=== PATIENT | female | born 1930 | race Caucasian/White ===

== ENCOUNTER 2016-11-09 14:16 | Emergency (ER) | payer MEDICARE, MEDICAID ==
[~2016-11-09] VITALS: Ht 165.1 cm; Wt 68.0 kg
[2016-11-09 14:45] VITALS: BP 146/71
== END 2016-11-09 16:05 | disposition home or self-care (01) ==
LOC: ER 14:16
DX: M43.12 Spondylolisthesis, cervical region (principal); M46.92 Unspecified inflammatory spondylopathy, cervical region; M50.30 Other cervical disc degeneration, unspecified cervical region
CPT/HCPCS: 72040